=== PATIENT | male | born 1995 | race Caucasian/White ===

== ENCOUNTER 2019-03-23 11:50 | Emergency (ER) | payer OTHER ==
[~2019-03-23] VITALS: Ht 185.4 cm; Wt 147.4 kg
[2019-03-23 12:07] VITALS: BP 116/79
--- NOTE | 2019-03-23 12:58 | NUR ---
PT AMBULATED TO ER BED 01
--- NOTE | 2019-03-23 13:05 | NUR ---
c/o ruq pain x yesterday----climbed a fence but ontop allow full weight to press up againast ruq soreness pain now---denies n/v/d---last bm this normal with straining PATIENT STATES PAIN OF 8/10 AT THIS TIME. PATIENT POSITIONED FOR COMFORT; HOB ELEVATED; BEDRAILS UP X2; BED DOWN. ER MD MADE AWARE OF PT STATUS.
[2019-03-23] MEDS ORDERED: KETOROLAC 30 MG/ML VIAL IM ONE (13:15)
[2019-03-23 13:55] VITALS: BP 119/74
== END 2019-03-23 13:55 | disposition home or self-care (01) ==
LOC: MED 11:50
DX: S20.211A Contusion of right front wall of thorax, initial encounter (principal); F17.210 Nicotine dependence, cigarettes, uncomplicated; Z88.0 Allergy status to penicillin; Z71.6 Tobacco abuse counseling; W17.89XA Other fall from one level to another, initial encounter; Y93.39 Activity, other involving climbing, rappelling and jumping off; Y92.89 Other specified places as the place of occurrence of the external cause; Y99.8 Other external cause status
CPT/HCPCS: 71045; 96372; 99283; J1885; Q0092

== ENCOUNTER 2019-05-15 22:39 | Emergency (ER) | payer OTHER ==
[~2019-05-15] VITALS: Ht 188 cm; Wt 159.3 kg
[2019-05-15 22:40] VITALS: BP 148/98
--- NOTE | 2019-05-15 23:00 | NUR ---
24 YO M BIB SELF AND PRESENTS TO ED C/O 08/04 LEFT HAND PAIN. PT STATES HE "WAS MESSING AROUND" WITH SOMEONE AND ENDED UP SUSTAINING AN INJURY TO LEFT HAND. PT IS NOT CLEAR ABOUT EVENTS LEADING UP TO INJURY AND IS NOT ANSWERING QUESTIONS CLEARLY. MINOR ABRASIONS NOTED TO LEFT HAND AND 4TH DIGIT. NO ACTIVE BLEEDING AT THIS TIME. MINOR SWELLING AND REDNESS NOTED. ROM TO 4TH DIGIT AFFECTED, WEAKNESS NOTED. -- PT ALERT, CALM. UNCOOPERATIVE WITH ANSWERING QUESTIONS. -- SKIN PINK, WARM, DRY. BREATHING EVEN, UNLABORED. -- CMS IN TACT. PMH-- DENIES RX-- DENIES
[2019-05-15] MEDS ORDERED: SULFAMETH/TRIMETH DS 800/160MG 1 TAB PO ONE (23:05)
--- NOTE | 2019-05-15 23:30 | NUR ---
PT RECEIVED ADACEL TDAP VACCINE WITH CONSENT FORM READ AND SIGNED.
[2019-05-15 23:35] VITALS: BP 148/98
--- NOTE | 2019-05-15 23:35 | NUR ---
Patient discharged with v/s stable. Written and verbal after care instructions given and explained. Patient alert, oriented and verbalized understanding of instructions. Ambulatory with steady gait. All questions addressed prior to discharge. ID band removed. Patient advised to follow up with PMD. Rx of BACTRIM AND IBUPROFEN WAS given. Patient educated on indication of medication including possible reaction and side effects. Opportunity to ask questions provided and answered.
--- NOTE | 2019-05-16 | NUR ---
Note undone in EDM - 05/16/19 at 0207 by [facility] 24 YO M JOVON SELF AND PRESENTS TO ED C/O 08/04 LEFT HAND PAIN. PT STATES HE "WAS MESSING AROUND" WITH SOMEONE AND ENDED UP SUSTAINING AN INJURY TO LEFT HAND. PT IS NOT CLEAR ABOUT EVENTS LEADING UP TO INJURY AND IS NOT ANSWERING QUESTIONS CLEARLY. MINOR ABRASIONS NOTED TO LEFT HAND AND 4TH DIGIT. NO ACTIVE BLEEDING AT THIS TIME. MINOR SWELLING AND REDNESS NOTED. ROM TO 4TH DIGIT AFFECTED, WEAKNESS NOTED. -- PT ALERT, CALM. UNCOOPERATIVE WITH ANSWERING QUESTIONS. -- SKIN PINK, WARM, DRY. BREATHING EVEN, UNLABORED. -- CMS IN TACT. PMH-- DENIES RX-- DENIES
--- NOTE | 2019-05-16 01:55 | NUR ---
Note undone in EDM - 05/16/19 at 0204 by [facility] Patient discharged with v/s stable. Written and verbal after care instructions given and explained. Patient alert, oriented and verbalized understanding of instructions. Ambulatory with steady gait. All questions addressed prior to discharge. ID band removed. Patient advised to follow up with PMD. Rx of Motrin and Azithromycin given. Patient educated on indication of medication including possible reaction and side effects. Opportunity to ask questions provided and answered.
== END 2019-05-15 23:35 | disposition home or self-care (01) ==
LOC: MED 22:39
DX: S69.92XA Unspecified injury of left wrist, hand and finger(s), initial encounter (principal); Z88.0 Allergy status to penicillin; W51.XXXA Accidental striking against or bumped into by another person, initial encounter; Y93.89 Activity, other specified; Y92.89 Other specified places as the place of occurrence of the external cause; Y99.8 Other external cause status
CPT/HCPCS: 73130; 90471; 90715; 99283; Q0092

== ENCOUNTER 2021-07-25 11:46 | Emergency (ER) | payer OTHER, SELFPAY ==
[~2021-07-25] VITALS: Ht 188 cm; Wt 176.6 kg
[2021-07-25 11:55] VITALS: BP 140/70
--- NOTE | 2021-07-25 11:55 | NUR ---
PT AMBULATED TO BED 2
--- NOTE | 2021-07-25 11:56 | NUR ---
26 YO MALE BIBS C/O COVID S/S X1 DAY. PT C/O CHEST PAIN WITH COUGH, SOB, FEVER, CHILLS, 7/10 HEADACHE. PATIENT STATES HIS TEMP WAS NOT TAKEN AT HOME BUT FEELS LIKE HE HAS A FEVER. TEMP TAKEN IN TRIAGE; 98.4. NO SOB AT THIS TIME, LUNGS CLEAR THROUGHOUT, PATIENT PRESENTS DIAPHORETIC. DENIES N/V/D. PATIENTS O2 SAT 96%, RR 22 AT THIS TIME. PATIENTS MOTHER TESTED POSITIVE FOR COVID. PMH: ASTHMA; DOES NOT USE INHALER ALLERGIES: PCN
--- NOTE | 2021-07-25 12:10 | NUR ---
PT C/O CHEST PAIN, PAIN INCREASES WITH COUGHING. DR MILLER MADE AWARE. NO EKG ORDERED AT THIS TIME PER ERMD.
--- NOTE | 2021-07-25 12:46 | NUR ---
NOVEL SAMPLE COLLECTED AND WALKED TO LAB
--- NOTE | 2021-07-25 13:45 | NUR ---
DR MILLER AT BEDSIDE EVALUATING PATIENT.
[2021-07-25] MEDS ORDERED: PRED20TA5 PO (14:04)
[2021-07-25] MEDS ORDERED: IBUP-2213 PO (14:04)
[2021-07-25 14:45] VITALS: BP 160/96
--- NOTE | 2021-07-25 14:46 | NUR ---
Patient discharged with v/s stable. Written and verbal after care instructions given and explained. Patient alert, oriented and verbalized understanding of instructions. Ambulatory with steady gait. All questions addressed prior to discharge. ID band removed. Patient advised to follow up with PMD. Rx of PREDNISONE, IBUPROFEN given. Patient educated on indication of medication including possible reaction and side effects. Opportunity to ask questions provided and answered.
== END 2021-07-25 14:46 | disposition home or self-care (01) ==
LOC: MED 11:46
DX: U07.1 COVID-19 (principal); J45.909 Unspecified asthma, uncomplicated; Z88.0 Allergy status to penicillin
CPT/HCPCS: 99283; U0003

== ENCOUNTER 2022-11-13 11:26 | Emergency (ER) | payer OTHER ==
[~2022-11-13] VITALS: Ht 190.5 cm; Wt 145.1 kg
[~2022-11-13 11:26] MED LIST: IBUP-2213 PO; PRED20TA5 PO
[2022-11-13 11:31] VITALS: BP 163/101
--- NOTE | 2022-11-13 11:37 | NUR ---
PT SWABBED AND SENT TO LAB
[2022-11-13] MEDS ORDERED: PROM118S5 PO (12:08)
[2022-11-13] MEDS ORDERED: LIDO100S PO (12:08)
[2022-11-13] MEDS ORDERED: SUD30 PO (12:08)
[2022-11-13] MEDS ORDERED: IBUP-2213 PO (12:08)
--- NOTE | 2022-11-13 12:12 | NUR ---
Patient discharged with v/s stable. Written and verbal after care instructions given and explained. Patient alert, oriented and verbalized understanding of instructions. Ambulatory with steady gait. All questions addressed prior to discharge. ID band removed. Patient advised to follow up with PMD. Rx of LIDOCAINE given. Patient educated on indication of medication including possible reaction and side effects. Opportunity to ask questions provided and answered.
== END 2022-11-13 12:12 | disposition home or self-care (01) ==
LOC: MED 11:26
DX: J06.9 Acute upper respiratory infection, unspecified (principal); Z20.822 Contact with and (suspected) exposure to COVID-19; B97.89 Other viral agents as the cause of diseases classified elsewhere; J45.909 Unspecified asthma, uncomplicated; Z88.0 Allergy status to penicillin; Z79.899 Other long term (current) drug therapy
CPT/HCPCS: 99283

== ENCOUNTER 2023-02-27 14:27 | Emergency (ER) | payer OTHER ==
[~2023-02-27] VITALS: Ht 190.5 cm; Wt 172.4 kg
[~2023-02-27 14:27] MED LIST changes: +LIDO100S PO; +PROM118S5 PO; +SUD30 PO
[2023-02-27 14:36] VITALS: BP 155/87
--- NOTE | 2023-02-27 14:39 | NUR ---
TO [facility]
[2023-02-27] MEDS ORDERED: ALBUTEROL 0.083% 2.5 MG/3 ML NEBU INH ONE (14:45)
[2023-02-27] MEDS ORDERED: IPRATROPIUM 0.02% 0.5 MG/2.5 ML NEBU INH ONE (14:45)
[2023-02-27] MEDS ORDERED: predniSONE 20 MG TAB PO ONE (14:45)
--- NOTE | 2023-02-27 15:00 | NUR ---
28/M WALKED IN C/O SOB ONSET THIS MORNING. AFEBRILE AT TRIAGE. PT REPORTS HX ASTHMA BUT DOES NOT USE INH. DENIES PREVIOUS ASTHMA FLAREUPS. PT REPORTS HAVING A FEVER YESTERDAY. AFEBRILE AT TRIAGE. PMH: ASTHMA
--- NOTE | 2023-02-27 15:10 | NUR ---
PT SWABBED FOR COVID AND FLU. RT AT BEDSIDE FOR BR TX
[2023-02-27] MEDS ORDERED: ALBU0.0912 INH (15:57)
[2023-02-27] MEDS ORDERED: SUD30 PO (15:57)
[2023-02-27] MEDS ORDERED: BENZ200C4 PO (15:57)
[2023-02-27] MEDS ORDERED: PRED20TA5 PO (15:57)
[2023-02-27] MEDS ORDERED: MUC600 PO (15:57)
[2023-02-27 16:03] VITALS: BP 128/79
--- NOTE | 2023-02-27 16:04 | NUR ---
Patient discharged with v/s stable. Written and verbal after care instructions given and explained. Patient alert, oriented and verbalized understanding of instructions. Ambulatory with steady gait. All questions addressed prior to discharge. ID band removed. Patient advised to follow up with PMD. Rx of prednisone, sudafed, albuterol given. Patient educated on indication of medication including possible reaction and side effects. Opportunity to ask questions provided and answered.
== END 2023-02-27 16:04 | disposition home or self-care (01) ==
LOC: MED 14:27
DX: J06.9 Acute upper respiratory infection, unspecified (principal); Z20.822 Contact with and (suspected) exposure to COVID-19; J45.901 Unspecified asthma with (acute) exacerbation; R03.0 Elevated blood-pressure reading, without diagnosis of hypertension; Z88.0 Allergy status to penicillin; Z79.899 Other long term (current) drug therapy
CPT/HCPCS: 71046; 87426; 87804; 94640; 94760; 99284; J7512; J7613; J7644

== ENCOUNTER 2023-10-15 14:14 | Emergency (ER) | payer OTHER ==
[~2023-10-15] VITALS: Ht 188 cm; Wt 196.9 kg
[~2023-10-15 14:14] MED LIST changes: +ALBU0.0912 INH; +BENZ200C4 PO; +MUC600 PO
[2023-10-15 14:44] VITALS: BP 128/95; PULSE 96; RESP 20; TEMP 96.6; O2SAT 100
[2023-10-15] MEDS ORDERED: PROM118S5 PO (16:02)
[2023-10-15] MEDS ORDERED: LORA1T1237 PO (16:02)
[2023-10-15 16:32] VITALS: BP 128/95; PULSE 96; RESP 20; TEMP 96.6; O2SAT 100
[2023-10-15 17:44] LABS: FLU A ANTIGEN negative (NEGATIVE); FLU B ANTIGEN NEGATIVE (NEGATIVE)
== END 2023-10-15 16:31 | disposition home or self-care (01) ==
LOC: MED 14:14
DX: J06.9 Acute upper respiratory infection, unspecified (principal); H92.03 Otalgia, bilateral; Z20.822 Contact with and (suspected) exposure to COVID-19; J45.909 Unspecified asthma, uncomplicated; Z79.899 Other long term (current) drug therapy; Z79.1 Long term (current) use of non-steroidal anti-inflammatories (NSAID); Z88.0 Allergy status to penicillin
CPT/HCPCS: 99283

== ENCOUNTER 2024-04-03 15:10 | Emergency (ER) | payer OTHER ==
[~2024-04-03] VITALS: Ht 188 cm; Wt 172.4 kg
[~2024-04-03 15:10] MED LIST changes: +LORA1T1237 PO
[2024-04-03 15:17] VITALS: BP 154/85; PULSE 84; RESP 18; TEMP 97.1; O2SAT 97
[2024-04-03 15:44] VITALS: O2SAT 97
[2024-04-03] MEDS: KETOROLAC 60 MG/2 ML VIAL IM ONE (15:44)
[2024-04-03] MEDS ORDERED: IBUP-2213 PO (16:00)
[2024-04-03] MEDS ORDERED: ACET-10509 PO (16:00)
== END 2024-04-03 16:29 | disposition home or self-care (01) ==
LOC: MED 15:10
DX: M79.661 Pain in right lower leg (principal); J45.909 Unspecified asthma, uncomplicated; Z79.899 Other long term (current) drug therapy
CPT/HCPCS: 96372; 99283; J1885